=== PATIENT | male | born 1980 | race Caucasian/White ===

== ENCOUNTER 2021-08-28 11:32 | Outpatient (CLI) | payer SELFPAY ==
--- NOTE | 2021-08-28 | XR_ITS ---
WS: [id number] XR abdomen 3V [id number] REASON FOR EXAM: constipation FINDINGS: Bowel gas pattern is unremarkable. No findings of obstruction. Colon is unremarkable. No free air or retroperitoneal air. No significant abdominal or pelvic calcification. The liver appears rather prominent on the upright view. From the dome of the liver to the tip of the right lobe is 24.5 centimeters. The spleen appears within normal limits. XR/XR abdomen 3V [id number] IMPRESSION: No acute abnormality. No bowel abnormality. Possible hepatomegaly.
== END 2021-08-28 11:33 | disposition home or self-care (01) ==
PROVIDERS: Visit Provider Family Medicine
DX: K59.00 Constipation, unspecified (principal)
CPT/HCPCS: 74021

== ENCOUNTER 2022-01-18 07:08 | Outpatient (CLI) | payer SELFPAY ==
--- NOTE | 2022-01-18 07:45 | US_ITS ---
WS: [id number] RIGHT UPPER QUADRANT ULTRASOUND HISTORY: Hep C COMPARISON: None available. Liver: 17.4 cm in length. Mildly enlarged liver. No mass or bile duct dilatation. Portal Vein: Normal hepatopetal flow with monophasic waveform. Gallbladder: Normally distended gallbladder with no stones or wall thickening. CBD: 0.6 cm Pancreas: Normal size and echogenicity. Right kidney: 11.2 cm in length. Normal size and echogenicity. No hydronephrosis or mass. Aorta and IVC: Unremarkable abdominal aorta and IVC. No ascites. US/US liver [id number] IMPRESSION: 1. Very mild hepatomegaly. 2. Normal gallbladder.
[2022-01-18 09:18] LABS: Tumor Marker Alpha Fetoprotein 4.2 ng/mL (0-8.3)
== END 2022-01-18 07:09 | disposition home or self-care (01) ==
LOC: RAD 07:12
PROVIDERS: Visit Provider Internal Medicine
DX: B18.2 Chronic viral hepatitis C (principal); R16.0 Hepatomegaly, not elsewhere classified
CPT/HCPCS: 76705; 82105